=== PATIENT | female | born 1990 | race African-American/Black ===

== ENCOUNTER 2017-03-13 10:15 | Inpatient (IN) | payer OTHER ==
[2017-03-13] MEDS: DEXTROSE 5%-LACTATED RINGERS 1,000 ML IV SCH (14:00)
[2017-03-13 14:09] LABS: BASOPHIL 0.6 % (0-2.0); EOSINOPHIL 0.3 % (0-4.5); MCH 23.4 pg (25.7-33.7); MCHC 33.6 g/dl (32.0-36.0); MEAN CELL VOLUME 69.6 fl (80-96); MEAN PLT VOLUME 7.8 fl (7.5-11.1); PLATELET COUNT 221 K/MM3 (134-434); RDW 16.4 % (11.6-15.6)
[2017-03-13] MEDS ORDERED: AMPICILLIN - 2 GM in SODIUM CHLORIDE 100 ML IVPB ONE (14:20)
[2017-03-13] MEDS ORDERED: BETAMET ACET/BETAMET NA PH 30 MG/5 ML VIAL IM ONE (14:22)
[2017-03-13 14:23] LABS: INR 1.12 (0.82-1.09); PROTHROMBIN TIME (PATIENT) 12.4 SEC (9.98-11.88)
[2017-03-13 14:26] LABS: ACTIVATED PTT 27.4 SECONDS (26.9-34.4)
[2017-03-13 14:29] LABS: CALCIUM 8.6 mg/dL (8.5-10.1); CREATININE 0.7 mg/dL (0.55-1.02)
[2017-03-13 14:35] VITALS: BMI 32.4
--- NOTE | 2017-03-13 14:48 | HP ---
Past Medical History - Primary Care Physician PCP:: Anthony Vanegas - Admission Chief Complaint: 34 weeks, vaginal discharge, r/o prom History of Present Illness: 26 yo f edc by boris 04/24/17 34 weeks, c/o leakage of clear fluid from vagina since 830 am ,no bleeding, no pain.,no fever or chills, care at [facility] care, total of 4 visit. vagina clear fluid noted , nitrazine negative , 3 times History Source: Patient Limitations to Obtaining History: No Limitations - Past Medical History ...: 4 ...Para: 2 ...Term: 2 ...: 0 ...Spon : 1 ...Induced : 0 ...Multiple Gestation: 0 ...EDC by Boris: 04/24/17 Additional OB History: 2 2009. 2013, term ,no complication. one spont ab - Past Surgical History Hx Myomectomy: No Hx Transabdominal Cerclage: No - Smoking History Smoking history: Never smoked Have you smoked in the past 12 months: No - Alcohol/Substance Use Hx Alcohol Use: No - Social History Usual Living Arrangement: Yes: With Spouse History of Recent Travel: No Home Medications - Allergies Allergies/Adverse Reactions: Allergies Allergy/AdvReac Type Severity Reaction Status Date / Time No Known Allergies Allergy Verified 03/13/17 11:40 - Home Medications Home Medications: Ambulatory Orders Vit/Iron Fumarate/FA [ Tablet] 1 each PO DAILY 03/13/17 Ibuprofen [Motrin -] 600 mg PO QID #28 tablet 03/20/17 Review of Systems - Review of Systems Constitutional: reports: No Symptoms Eyes: reports: No Symptoms HENT: reports: No Symptoms Neck: reports: No Symptoms Cardiovascular: reports: No Symptoms Respiratory: reports: No Symptoms Gastrointestinal: reports: No Symptoms Genitourinary: reports: No Symptoms Breasts: reports: No Symptoms Reported Musculoskeletal: reports: No Symptoms Neurological: reports: No Symptoms Endocrine: reports: No Symptoms Hematology/Lymphatic: reports: No Symptoms Psychiatric: reports: No Symptoms Physical Exam - Maternity Vital Signs: Vital Signs Temperature 98.2 F 03/13/17 14:20 Pulse Rate 82 03/13/17 14:20 Respiratory Rate 18 03/13/17 14:20 Blood Pressure 117/50 03/13/17 14:20 O2 Sat by Pulse Oximetry (%) Constitutional: Yes: Well Nourished, No Distress, Calm Eyes: Yes: WNL, Conjunctiva Clear, EOM Intact HENT: Yes: WNL, Atraumatic, Normocephalic Neck: Yes: WNL, Supple, Trachea Midline Cardiovascular: Yes: WNL, Regular Rate and Rhythm Breast(s): Yes: WNL - Abdominal Exam/OB Fundal Height: 34 Number of Fetuses: Single Presentation: Vertex Regularity: Irritability Intensity: Unaware Monitor Mode: External Heart Rate Location: [facility] Category: I Accelerations: Uniform Decelerations: None - Vaginal Exam/OB Vaginal Bleediing: No Speculum Exam: Yes Dilatation (cm): closed Effacement (%): 0 Amniotic Membrane Status: Leaking Nitrazine Test: Negative Amniotic Fluid: Yes: Clear Presentation: Vertex/Position Station: -2 - Physical Exam Musculoskeletal: Yes: WNL Extremities: Yes: WNL Edema: LLE: Trace, RLE: Trace Deep Tendon Reflex Grade: Normal +2 Psychiatric: Yes: WNL - Labs Lab Results: CBC, BMP 03/13/17 13:50 03/13/17 13:50 Hemorrhage Risk Assessment - Risk Factors Medium Risk Factors: Yes: None High Risk Factors: Yes: None Risk Score: 1 Risk Level: Medium Risk Problem List - Problems (1) with 34 completed weeks gestation Code(s): Z3A.34 - 34 WEEKS GESTATION OF (2) Ruptured, membranes, premature Code(s): O42.90 - FRANKIE ROM, 7TH0 BETW RUPT & ONST LABR, UNSP WEEKS OF GEST Qualifiers: PROM gestational age: -third trimester Assessment/Plan 34 weeks, clear vaginal fluid seen in vaginal vault, nitrazine negative, ob sono BPP 8/8 , kitty normal, fhr cat 1, in view of large amt. of clear vaginal fluid fluid ,unable to r/o PROM, advised admission for observation , iv ampicillin prophylaxis, betametasone, revaluate with repeat sono in 24 hr check kitty, heart monitoring, management discussed with patient, agreed
[2017-03-13 17:40] LABS: URINE APPEARANCE CLEAR; URINE BILIRUBIN NEGATIVE (NEGATIVE); URINE BLOOD NEGATIVE (NEGATIVE); URINE COLOR YELLOW; URINE GLUCOSE (UA) NEGATIVE (NEGATIVE); URINE KETONE NEGATIVE (NEGATIVE); URINE LEUK ESTERASE NEGATIVE (NEGATIVE); URINE NITRITE POSITIVE (NEGATIVE); URINE UROBILINOGEN 4.0 E.U/dl E.U./dl (0.2-1.0)
[2017-03-13 17:55] LABS: URINE PROTEIN 1+ (NEGATIVE)
[2017-03-13] MEDS: AMPICILLIN - 1 GM in SODIUM CHLORIDE 100 ML IVPB SCH ×2 (18:00→21:55)
[2017-03-13 18:11] LABS: URINE MARIJUANA THC NEGATIVE ng/ml (CUTOFF=50)
[2017-03-13 18:12] LABS: URINE MUCUS RARE; URINE RBC 1 /hpf (0-3); URINE WBC 1 /hpf (3-5)
[2017-03-14] MEDS: AMPICILLIN - 1 GM in SODIUM CHLORIDE 100 ML IVPB SCH ×6 (02:15→23:00)
[2017-03-14 08:28] LABS: BASOPHIL 0.2 % (0-2.0); MCH 23.9 pg (25.7-33.7); MCHC 33.7 g/dl (32.0-36.0); MEAN PLT VOLUME 8.3 fl (7.5-11.1); NEUTROPHILS 82.1 % (42.8-82.8); PLATELET COUNT 212 K/MM3 (134-434); WHITE BLOOD COUNT 8.2 K/mm3 (4.0-10.0)
[2017-03-14 08:49] LABS: CALCIUM 8.8 mg/dL (8.5-10.1)
[2017-03-14 08:50] LABS: COCKROFT - GAULT 196.656; CREATININE 0.6 mg/dL (0.55-1.02)
[2017-03-14] MEDS: PRENATAL VITAMINS W/ FOLIC ACID TABLET (FP) PO SCH (09:50)
[2017-03-14] MEDS ORDERED: BETAMET ACET/BETAMET NA PH 30 MG/5 ML VIAL IM ONE (11:30)
[2017-03-14] MEDS: DEXTROSE 5%-LACTATED RINGERS 1,000 ML IV SCH ×2 (11:30→17:41)
--- NOTE | 2017-03-14 21:34 | PN ---
Progress Note (short form) - Note Progress Note: 34 weeks, prom. ,no pain, no vaginal bleeding, no chills, still leaking fluid less than before CBC, BMP 03/14/17 07:30 03/14/17 07:30 Last Vital Signs Temp Pulse Resp BP Pulse Ox 98.7 F 81 18 108/48 03/14/17 21:00 03/14/17 20:00 03/14/17 20:00 03/14/17 20:00 uterus non tender. fh cat 1 tracing, no contraction, sono decreased RIANNA plan received second dose of celestone. cont antibiotics revaluate in 24 hr for possible induction Problem List - Problems (1) with 34 completed weeks gestation Code(s): Z3A.34 - 34 WEEKS GESTATION OF (2) Ruptured, membranes, premature Code(s): O42.90 - FRANKIE ROM, 7TH0 BETW RUPT & ONST LABR, UNSP WEEKS OF GEST Qualifiers: PROM gestational age: -third trimester
[2017-03-15] MEDS: AMPICILLIN - 1 GM in SODIUM CHLORIDE 100 ML IVPB SCH ×6 (02:20→22:00)
[2017-03-15] MEDS: DEXTROSE 5%-LACTATED RINGERS 1,000 ML IV SCH ×3 (02:20→17:35)
[2017-03-15 05:35] LABS: MCH 23.1 pg (25.7-33.7); MCHC 32.7 g/dl (32.0-36.0); MEAN CELL VOLUME 70.6 fl (80-96); MEAN PLT VOLUME 7.9 fl (7.5-11.1); PLATELET COUNT 198 K/MM3 (134-434); RDW 16.6 % (11.6-15.6); WHITE BLOOD COUNT 11.1 K/mm3 (4.0-10.0)
[2017-03-15] MEDS: PRENATAL VITAMINS W/ FOLIC ACID TABLET (FP) PO SCH (09:39)
--- NOTE | 2017-03-15 10:02 | PN ---
Progress Note (short form) - Note Progress Note: no c/o no pain, no gush of fluid , no bleeding, no foul discharge CBC, BMP 03/15/17 05:25 03/14/17 07:30 abdomen soft, uterus non tender nst reactive, cat 1 tracing irregular on and off contraction induction vs expectant management discussed as long as no chorio plan evaluation by MFM in am, with recommendation. cont nst, and monitor temp Problem List - Problems (1) with 34 completed weeks gestation Code(s): Z3A.34 - 34 WEEKS GESTATION OF (2) Ruptured, membranes, premature Code(s): O42.90 - FRANKIE ROM, 7TH0 BETW RUPT & ONST LABR, UNSP WEEKS OF GEST Qualifiers: PROM gestational age: -third trimester
--- NOTE | 2017-03-15 10:08 | HP ---
Past Medical History - Primary Care Physician PCP:: Anthony Vanegas - Admission Chief Complaint: 41.1 weeks, labor History of Present Illness: 26 yo f [id number] 03/05/17, care at [facility]. c/o of contraction,no rom, no bleeding, cx 2 cm, 80 vx -3 mi, fhr cat 1, contraction q 2 min History Source: Patient Limitations to Obtaining History: No Limitations - Past Medical History ...: 4 ...Para: 2 ...Term: 2 ...: 0 ...Spon : 1 ...Induced : 0 ...Multiple Gestation: 0 ...EDC by Sono: 04/24/17 - Past Surgical History Past Surgical History: Yes: Appendectomy - Smoking History Smoking history: Never smoked Have you smoked in the past 12 months: No - Alcohol/Substance Use Hx Alcohol Use: No - Social History Usual Living Arrangement: Yes: With Spouse History of Recent Travel: No Home Medications - Allergies Allergies/Adverse Reactions: Allergies Allergy/AdvReac Type Severity Reaction Status Date / Time No Known Allergies Allergy Verified 03/13/17 11:40 - Home Medications Home Medications: Ambulatory Orders Vit/Iron Fumarate/FA [ Tablet] 1 each PO DAILY 03/13/17 Review of Systems - Review of Systems Constitutional: reports: No Symptoms Eyes: reports: No Symptoms HENT: reports: No Symptoms Neck: reports: No Symptoms Cardiovascular: reports: No Symptoms Respiratory: reports: No Symptoms Gastrointestinal: reports: Abdominal Pain Genitourinary: reports: No Symptoms Breasts: reports: No Symptoms Reported Musculoskeletal: reports: No Symptoms Integumentary: reports: No Symptoms Neurological: reports: No Symptoms Endocrine: reports: No Symptoms Hematology/Lymphatic: reports: No Symptoms Psychiatric: reports: No Symptoms Pain Intensity: 6 Physical Exam - Maternity Vital Signs: Vital Signs Temperature 98.2 F 03/15/17 08:00 Pulse Rate 82 03/15/17 09:00 Respiratory Rate 20 03/15/17 09:00 Blood Pressure 100/50 03/15/17 09:00 O2 Sat by Pulse Oximetry (%) Constitutional: Yes: Well Nourished, No Distress, Calm Eyes: Yes: WNL, Conjunctiva Clear, EOM Intact HENT: Yes: WNL, Atraumatic, Normocephalic Neck: Yes: WNL, Supple, Trachea Midline Cardiovascular: Yes: WNL, Regular Rate and Rhythm Breast(s): Yes: WNL - Abdominal Exam/OB Fundal Height: 40 Number of Fetuses: Single Presentation: Vertex Contractions: Yes Regularity: Regular Intensity: Mod/Strong Monitor Mode: External Heart Rate [facility] Category: I Accelerations: Uniform Decelerations: None - Vaginal Exam/OB Vaginal Bleediing: No Speculum Exam: No Dilatation (cm): 2 cm Effacement (%): 80 Amniotic Membrane Status: Intact Nitrazine Test: Negative Presentation: Vertex/Position Station: -3 - Physical Exam Musculoskeletal: Yes: Back Pain Extremities: Yes: WNL Edema: Yes Edema: LLE: 1+, RLE: 1+ Deep Tendon Reflex Grade: Normal +2 Psychiatric: Yes: WNL - Labs Lab Results: CBC, BMP 03/15/17 05:25 03/14/17 07:30 Hemorrhage Risk Assessment - Risk Factors Risk Score: 0 Risk Level: Low Risk Problem List - Problems (1) with 34 completed weeks gestation Code(s): Z3A.34 - 34 WEEKS GESTATION OF (2) Ruptured, membranes, premature Code(s): O42.90 - FRANKIE ROM, 7TH0 BETW RUPT & ONST LABR, UNSP WEEKS OF GEST Qualifiers: PROM gestational age: -third trimester
[2017-03-16] MEDS: AMPICILLIN - 1 GM in SODIUM CHLORIDE 100 ML IVPB SCH ×6 (02:00→22:10)
[2017-03-16] MEDS: DEXTROSE 5%-LACTATED RINGERS 1,000 ML IV SCH ×2 (02:30→16:00)
[2017-03-16 08:09] LABS: BASOPHIL 0.2 % (0-2.0); EOSINOPHIL 0.1 % (0-4.5); MCH 23.7 pg (25.7-33.7); MCHC 33.6 g/dl (32.0-36.0); MEAN CELL VOLUME 70.6 fl (80-96); MEAN PLT VOLUME 8.2 fl (7.5-11.1); NEUTROPHILS 76.2 % (42.8-82.8); PLATELET COUNT 175 K/MM3 (134-434); RDW 16.7 % (11.6-15.6); WHITE BLOOD COUNT 10.8 K/mm3 (4.0-10.0)
--- NOTE | 2017-03-16 08:19 | PN ---
Progress Note (short form) - Note Progress Note: mild occasional cramps, still leaking clear fluid Last Vital Signs Temp Pulse Resp BP Pulse Ox 98.3 F 81 20 112/51 03/16/17 06:00 03/16/17 06:00 03/16/17 06:00 03/16/17 06:00 uterus non tender, no contraction felt plan MFM evaluation and recommendation possible induction Problem List - Problems (1) with 34 completed weeks gestation Code(s): Z3A.34 - 34 WEEKS GESTATION OF (2) Ruptured, membranes, premature Code(s): O42.90 - FRANKIE ROM, 7TH0 BETW RUPT & ONST LABR, UNSP WEEKS OF GEST Qualifiers: PROM gestational age: -third trimester
[2017-03-16] MEDS: PRENATAL VITAMINS W/ FOLIC ACID TABLET (FP) PO SCH (10:16)
[2017-03-17] MEDS: AMPICILLIN - 1 GM in SODIUM CHLORIDE 100 ML IVPB SCH ×6 (01:59→22:15)
[2017-03-17] MEDS: DEXTROSE 5%-LACTATED RINGERS 1,000 ML IV SCH ×2 (08:45→17:35)
[2017-03-17] MEDS ORDERED: BUTORPHANOL TARTRATE 1 MG/ML VIAL IVPUSH PRN (08:49)
--- NOTE | 2017-03-17 08:49 | PN ---
Progress Note (short form) - Note Progress Note: spoke to DR Jenn NELSON ,case discussed , advised induction, induction discussed with patient, rba discussed , cx closed , non effaced -3 mr, fhr cat 1,no contraction., cervidil, pitocin discussed , rba expalined , agreed to have cervidil ,cervidil inserted at 840 am Problem List - Problems (1) with 34 completed weeks gestation Code(s): Z3A.34 - 34 WEEKS GESTATION OF (2) Ruptured, membranes, premature Code(s): O42.90 - FRANKIE ROM, 7TH0 BETW RUPT & ONST LABR, UNSP WEEKS OF GEST Qualifiers: PROM gestational age: -third trimester
[2017-03-17] MEDS ORDERED: DINOPROSTONE 10 MG VAGINAL SUPPOSITORY VG ONE (08:50)
[2017-03-17] MEDS: PRENATAL VITAMINS W/ FOLIC ACID TABLET (FP) PO SCH (09:17)
--- NOTE | 2017-03-17 20:39 | PN ---
Progress Note (short form) - Note Progress Note: cx closed , 50 vx -3 mr, fhr cat 1, cervidil removed . pitocin discussed , agreed Problem List - Problems (1) with 34 completed weeks gestation Code(s): Z3A.34 - 34 WEEKS GESTATION OF (2) Ruptured, membranes, premature Code(s): O42.90 - FRANKIE ROM, 7TH0 BETW RUPT & ONST LABR, UNSP WEEKS OF GEST Qualifiers: PROM gestational age: -third trimester
[2017-03-17] MEDS ORDERED: OXYTOCIN 15 UNITS/ LR 250 ML 250 ML IVPB SCH (20:45)
--- NOTE | 2017-03-18 01:27 | PN ---
Progress Note (short form) - Note Progress Note: cx 4 cm 75 vx -2 mi, fhr cat 1, occasional mild variable with good recovery Problem List - Problems (1) with 34 completed weeks gestation Code(s): Z3A.34 - 34 WEEKS GESTATION OF (2) Ruptured, membranes, premature Code(s): O42.90 - FRANKIE ROM, 7TH0 BETW RUPT & ONST LABR, UNSP WEEKS OF GEST Qualifiers: PROM gestational age: -third trimester
[2017-03-18] MEDS ORDERED: METHYLERGONOVINE MALEATE 0.2 MG/1 ML AMP IM ONE (02:15)
[2017-03-18] MEDS ORDERED: BISACODYL 10 MG SUPP.RECT RC PRN (02:18)
[2017-03-18] MEDS ORDERED: METHYLERGONOVINE MALEATE 0.2 MG/1 ML AMP IM PRN (02:18)
[2017-03-18] MEDS ORDERED: oxyCODONE HCL 5 MG TABLET PO PRN (02:18)
[2017-03-18] MEDS ORDERED: BENZOCAINE 20% 57 GM BOTTLE TP PRN (02:18)
[2017-03-18] MEDS ORDERED: WITCH HAZEL 50% (TUCKS) 40 PAD/JAR PAD TP PRN (02:18)
[2017-03-18] MEDS ORDERED: BENZOCAINE 28 GM HEMORRHOIDAL OINTMENT TP PRN (02:18)
[2017-03-18] MEDS ORDERED: MISOPROSTOL 100 MCG TABLET NR ONE (02:25)
[2017-03-18] MEDS ORDERED: CARBOPROST TROMETHAMINE 250 MCG/ML AMPUL IM ONE ×2 (02:30→02:55)
[2017-03-18] MEDS ORDERED: D5W-LR W/ 20 UNITS OXYTOCIN 1,000 ML IV SCH (02:30)
[2017-03-18] MEDS ORDERED: BUTORPHANOL TARTRATE 1 MG/ML VIAL IVPUSH ONE (02:35)
[2017-03-18 03:15] LABS: ARTERIAL BLOOD GAS pH 7.23 (7.35-7.45)
[2017-03-18] MEDS ORDERED: OXYTOCIN IV ONE (03:15)
[2017-03-18] MEDS ORDERED: LACTATED RINGERS IV ONE (03:15)
[2017-03-18] MEDS ORDERED: DEXTROSE 5% IV ONE (03:15)
[2017-03-18 03:16] LABS: ARTERIAL BLD GAS O2 SATURATION 38.7 % (90-98.9); ARTERIAL BLOOD GAS BASE EXCESS -3.9 meq/l (-2-2); ARTERIAL BLOOD GAS HCO3 24.6 meq/L (22-26)
[2017-03-18 03:18] LABS: ARTERIAL BLOOD GAS PO2 23.1 mmHg (80-100)
[2017-03-18] MEDS: AMPICILLIN - 1 GM in SODIUM CHLORIDE 100 ML IVPB SCH (03:18)
[2017-03-18 03:21] LABS: VENOUS BLOOD GAS HCO3 23.1 meq/L (19-25); VENOUS PH 7.39 (7.32-7.42)
[2017-03-18] MEDS: DEXTROSE 5%-LACTATED RINGERS 1,000 ML IV SCH (03:47)
[2017-03-18] MEDS: IBUPROFEN 600 MG TABLET (FP) PO PRN ×2 (07:01→21:25)
[2017-03-18] MEDS: ACETAMINOPHEN 325 MG TABLET (FP) PO PRN ×2 (07:02→21:24)
[2017-03-18] MEDS: PRENATAL VITAMINS W/ FOLIC ACID TABLET (FP) PO SCH (09:38)
[2017-03-18] MEDS: FERROUS SO4 325 MG TABLET (FP) PO SCH ×2 (09:38→21:24)
--- NOTE | 2017-03-18 09:47 | PN ---
Progress Note (short form) - Note Progress Note: after spont. vaginal delivery, no episiotmy, had uterine atony, guidry inserted , iv pitocin, methergine 2 doses of hemabates given,uterine massaging done, cytotec given intravaginally, utrus firm, bleeding stopped, VS stable Problem List - Problems (1) with 34 completed weeks gestation Code(s): Z3A.34 - 34 WEEKS GESTATION OF (2) Ruptured, membranes, premature Code(s): O42.90 - FRANKIE ROM, 7TH0 BETW RUPT & ONST LABR, UNSP WEEKS OF GEST Qualifiers: PROM gestational age: -third trimester
[2017-03-18] MEDS ORDERED: PRENATAL VITAMINS W/ FOLIC ACID TABLET (FP) PO SCH (10:00)
[2017-03-18 10:20] LABS: BASOPHIL 0.5 % (0-2.0); MCH 23.1 pg (25.7-33.7); MCHC 32.9 g/dl (32.0-36.0); MEAN CELL VOLUME 70.1 fl (80-96); MEAN PLT VOLUME 8.4 fl (7.5-11.1); NEUTROPHILS 83.7 % (42.8-82.8); PLATELET COUNT 228 K/MM3 (134-434); RDW 16.5 % (11.6-15.6); WHITE BLOOD COUNT 17.7 K/mm3 (4.0-10.0)
--- NOTE | 2017-03-19 07:24 | PN ---
Post Progress Note Post Day: 1 Type of Delivery: Vital Signs: Vital Signs Temperature 99.6 F 03/18/17 22:00 Pulse Rate 75 03/18/17 22:00 Respiratory Rate 20 03/18/17 22:00 Blood Pressure 132/86 03/18/17 22:00 O2 Sat by Pulse Oximetry (%) Breast Exam: Yes: Soft Uterus: Yes: Fundus Firm Abdomen/GI: Yes: Abdomen soft Lochia: Yes: Rubra Lochia, amount: Small Extremities: Yes: Calves non-tender Perineum: Yes: Intact Activity: Ambulating - Labs Labs: CBC WBC 17.7 K/mm3 (4.0-10.0) H D 03/18/17 10:00 RBC 4.11 M/mm3 (3.60-5.2) 03/18/17 10:00 Hgb 9.5 GM/dL (10.7-15.3) L 03/18/17 10:00 Hct 28.8 % (32.4-45.2) L 03/18/17 10:00 MCV 70.1 fl (80-96) L 03/18/17 10:00 MCHC 32.9 g/dl (32.0-36.0) 03/18/17 10:00 RDW 16.5 % (11.6-15.6) H 03/18/17 10:00 Plt Count 228 K/MM3 (134-434) D 03/18/17 10:00 MPV 8.4 fl (7.5-11.1) 03/18/17 10:00 Neutrophils % 83.7 % (42.8-82.8) H 03/18/17 10:00 Lymphocytes % 8.0 % (8-40) D 03/18/17 10:00 Monocytes % 7.8 % (3.8-10.2) 03/18/17 10:00 Eosinophils % 0.0 % (0-4.5) D 03/18/17 10:00 Basophils % 0.5 % (0-2.0) 03/18/17 10:00 Assessment/Plan as above ambulating check labs vss reg diet
[2017-03-19 09:14] LABS: BASOPHIL 0.3 % (0-2.0); EOSINOPHIL 0.5 % (0-4.5); MCH 23.2 pg (25.7-33.7); MCHC 32.8 g/dl (32.0-36.0); MEAN CELL VOLUME 70.7 fl (80-96); MEAN PLT VOLUME 8.5 fl (7.5-11.1); NEUTROPHILS 70.8 % (42.8-82.8); PLATELET COUNT 213 K/MM3 (134-434); RDW 16.5 % (11.6-15.6); WHITE BLOOD COUNT 13.3 K/mm3 (4.0-10.0)
[2017-03-19] MEDS ORDERED: DIPHTH,PERTUSS(ACELL),TET 0.5 ML DISP.SYRIN IM ONE (10:00)
[2017-03-19] MEDS: PRENATAL VITAMINS W/ FOLIC ACID TABLET (FP) PO SCH (10:54)
[2017-03-19] MEDS: FERROUS SO4 325 MG TABLET (FP) PO SCH ×2 (10:54→21:26)
[2017-03-19 20:54] VITALS: TEMP 98.8
[2017-03-19] MEDS ORDERED: SENNOSIDES/DOCUSATE COMBO (SENNA PLUS) TABLET (UD) PO PRN (22:00)
--- NOTE | 2017-03-20 09:09 | DS ---
Physical Exam-SUPERVISOR COIL WINDING Vital Signs: Vital Signs Temperature 98.8 F 03/19/17 20:52 Pulse Rate 80 03/19/17 20:52 Respiratory Rate 20 03/19/17 20:52 Blood Pressure 137/81 03/19/17 20:52 O2 Sat by Pulse Oximetry (%) Constitutional: Yes: Well Nourished, No Distress, Calm Eyes: Yes: WNL, Conjunctiva Clear, EOM Intact HENT: Yes: WNL, Atraumatic, Normocephalic Neck: Yes: WNL, Supple, Trachea Midline Cardiovascular: Yes: WNL, Regular Rate and Rhythm Respiratory: Yes: WNL, Regular, CTA Bilaterally Gastrointestinal: Yes: WNL ...Rectal Exam: Yes: WNL Renal/: Yes: WNL ....Post : Yes: Uterus firm, Uterus non-tender, Slight lochia rubra Breast(s): Yes: WNL Musculoskeletal: Yes: WNL Extremities: Yes: WNL Edema: No Integumentary: Yes: WNL Neurological: Yes: WNL, Alert, Oriented ...Motor Strength: WNL Psychiatric: Yes: WNL, Alert, Oriented Labs: CBC, BMP 03/19/17 08:00 03/14/17 07:30 Delivery - Delivery Vaginal Delivery: Spontaneous (post hemmorrhage) Type of Anesthesia: None Episiotomy/Laceration: None EBL (cc): 700 Delivery, Single - Stages of Labor Date 1st Stage Initiatied: 03/18/17 Time 1st Stage Initiated: 00:00 Date 2nd Stage Initiated: 03/18/17 Time 2nd Stage Initiated: 01:45 Date of Delivery: 03/18/17 Time of Delivery: 02:05 Time Placenta Delivered: 02:10 Placenta: Yes: Spontaneous - Condition of Infant Sexual Assault Response Coordinator/Automatic Lump Making Machine Tender Present: No Infant Gender: Male Weight: 5 lb 7 oz Position: Left, OA Total Hours ROM (Hrs/Mins): 113hrs 40mins - 1 Minute Total Score: 9 5 Minutes Total Score: 9 - [place] Feeding Plan Initial Plan: Exclusive throughout hospitalization Discharge Summary Reason For Visit: POSSIBLE RUPTURE OF MEMBRANE Current Active Problems with 34 completed weeks gestation (Acute) Ruptured, membranes, premature (Acute) Procedures: Principal: Condition: Good - Instructions Diet, Activity, Other Instructions: regular diet, no intercourse, follow up [facility] care 4 weeks Referrals: Anthony Vanegas MD [Staff Physician] - Disposition: HOME - Home Medications Comprehensive Discharge Medication List: Ambulatory Orders Vit/Iron Fumarate/FA [ Tablet] 1 each PO DAILY 03/13/17 Ibuprofen [Motrin -] 600 mg PO QID #28 tablet 03/20/17
[2017-03-20] MEDS: FERROUS SO4 325 MG TABLET (FP) PO SCH (10:58)
[2017-03-20] MEDS: ACETAMINOPHEN 325 MG TABLET (FP) PO PRN (10:58)
[2017-03-20] MEDS: IBUPROFEN 600 MG TABLET (FP) PO PRN (10:58)
[2017-03-20] MEDS: PRENATAL VITAMINS W/ FOLIC ACID TABLET (FP) PO SCH (10:58)
[2017-03-20 11:39] VITALS: BP 120/65; PULSE 76
--- NOTE | 2017-03-25 13:23 | PATH ---
Surgical Pathology Report Patient Name: FARZAD NEGRON Med. Rec. 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 Electronically Signed Lance Pacheco M.D. Gross Description The specimen is received fresh, labeled "placenta" and is a 402 gram, 15.0 x 14.5 x 2.7 cm placenta with attached membranes and umbilical cord. The attached membranes are valdovinos, translucent with focal opacities and insert marginally. The umbilical cord measures 17 cm in length and averages 1 cm in diameter. The cord inserts centrally. No true knots or strictures are identified. Cut surface of the umbilical cord reveals 3 vessels. The surface is estrella-blue with fibrin deposition and appropriate caliber vessels. The maternal surface is red-brown and intact. Sectioning reveals red-brown, spongy parenchyma. No focal lesions are identified. Revenue Tax Specialist sections are submitted in three cassettes as follows: 1- membrane rolls and umbilical cord; 2-3- full thickness sections of placenta. /03/24/2017 [facility]03/24/2017
== END 2017-03-20 13:30 | disposition home or self-care (01) | DRG 560 ==
LOC: JDEL 10:15 → JLDR 13:15 → J3W 03-18 05:26
PROVIDERS: ADMIT Obstetrics & Gynecology; ATTEND Obstetrics & Gynecology
PROC: 3E0P7GC Introduction of Other Therapeutic Substance into Female Reproductive, Via Natural or Artificial Opening (ICD-10-PCS; 2017-03-17)
PROC: 10E0XZZ Delivery of Products of Conception, External Approach (ICD-10-PCS; principal; 2017-03-18)
PROC: 3E0334Z Introduction of Serum, Toxoid and Vaccine into Peripheral Vein, Percutaneous Approach (ICD-10-PCS; 2017-03-18)
DX: O60.14X0 Preterm labor third trimester with preterm delivery third trimester, not applicable or unspecified (principal); Z3A.34 34 weeks gestation of pregnancy; O72.1 Other immediate postpartum hemorrhage; O26.893 Other specified pregnancy related conditions, third trimester; Z67.91 Unspecified blood type, Rh negative; Z37.0 Single live birth
CPT/HCPCS: 36415; 36600; 59409; 76816-TC; 80048; 80307; 81003; 81015; 82803; 85025; 85027; 85461; 85610; 85730; 86593; 86850; 86870; 86900; 86901; 86902; 86999; 87081; 87086; 88307-TC; 90715; 96372

== ENCOUNTER 2018-07-23 04:05 | Inpatient (IN) | payer OTHER ==
[~2018-07-23 04:05] MED LIST: DEXTROSE 5%-LACTATED RINGERS 1,000 ML IV SCH
[2018-07-23] MEDS ORDERED: AMPICILLIN - 2 GM in SODIUM CHLORIDE 100 ML IVPB ONE (05:45)
[2018-07-23 06:15] LABS: BASO % 0.3 % (0-2.0); EOS % 0.2 % (0-4.5); HEMATOCRIT 26.2 % (32.4-45.2); HEMOGLOBIN 8.5 GM/dL (10.7-15.3); LYMPH % 27.3 % (8-40); MCH 20.3 pg (25.7-33.7); MCHC 32.5 g/dl (32.0-36.0); MEAN CELL VOLUME 62.3 fl (80-96); MEAN PLT VOLUME 8.7 fl (7.5-11.1); MONO % 7.9 % (3.8-10.2); NEUT % 64.3 % (42.8-82.8); PLATELET COUNT 212 K/MM3 (134-434); RBC 4.21 M/mm3 (3.60-5.2); RDW 20.4 % (11.6-15.6); WHITE BLOOD COUNT 9.1 K/mm3 (4.0-10.0)
[2018-07-23] MEDS ORDERED: AMPICILLIN SODIUM 2 GM VIAL ONE (06:15)
[2018-07-23 06:20] LABS: ADD RBC MORPHOLOGY YES
[2018-07-23 06:28] LABS: INR 1.11 (0.83-1.09); PROTHROMBIN TIME (PATIENT) 12.5 SEC (9.7-13.0)
[2018-07-23 06:31] LABS: ACTIVATED PTT 24.4 SECONDS (25.2-36.5)
[2018-07-23 06:39] LABS: ANION GAP 12 MMOL/L (8-16); BLOOD UREA NITROGEN 9 mg/dL (7-18); CALCIUM 8.8 mg/dL (8.5-10.1); CHLORIDE 107 mmol/L (98-107); CO2 20 mmol/L (21-32); CREATININE 0.5 mg/dL (0.55-1.3); GLUCOSE,RANDOM 73 mg/dL (74-106); POTASSIUM 3.7 mmol/L (3.5-5.1); SODIUM 140 mmol/L (136-145)
[2018-07-23] MEDS ORDERED: TUBERCULIN PPD 5 TU/0.1ML SYRINGE (IN PATIENT USE ONLY) ID ONE (07:00)
[2018-07-23] MEDS ORDERED: DINOPROSTONE 10 MG VAGINAL SUPPOSITORY VG ONE (07:59)
[2018-07-23] MEDS ORDERED: DEXTROSE 5%-LACTATED RINGERS 1,000 ML IV SCH (08:00)
--- NOTE | 2018-07-23 08:04 | HP ---
Past Medical History - Admission Chief Complaint: Rupture of membrane History of Present Illness: 27 yo @ 37 weeks gestation, EDC 08/13/18, presents c/o rupture of membrane. Upon admission she was finger tip but there's was evidence of gross pooling. History Source: Patient Limitations to Obtaining History: No Limitations - Past Medical History ...: 5 ...Para: 3 ...Term: 2 ...: 1 ...Spon : 1 ...Induced : 0 ...Multiple Gestation: 0 ... Weeks Gestation by Dates: 37.0 ...EDC by Dates: 08/13/18 - Past Surgical History Past Surgical History: Yes: Appendectomy Hx Myomectomy: No Hx Transabdominal Cerclage: No - Smoking History Smoking history: Never smoked Have you smoked in the past 12 months: No - Alcohol/Substance Use Hx Alcohol Use: No History of Substance Use: reports: None - Social History Usual Living Arrangement: Yes: With Significant Other History of Recent Travel: No Home Medications - Allergies Allergies/Adverse Reactions: Allergies Allergy/AdvReac Type Severity Reaction Status Date / Time No Known Allergies Allergy Verified 07/23/18 06:53 - Home Medications Home Medications: Ambulatory Orders Vit/Iron Fum/Folic AC [ Tablet] 1 each PO DAILY 03/13/17 Family Disease History - Family Disease History Family History: Unremarkable Review of Systems - Review of Systems Constitutional: reports: No Symptoms Eyes: reports: No Symptoms HENT: reports: No Symptoms Neck: reports: No Symptoms Cardiovascular: reports: No Symptoms Respiratory: reports: No Symptoms Gastrointestinal: reports: No Symptoms Genitourinary: reports: Other (Leakage of fluid) Breasts: reports: No Symptoms Reported Musculoskeletal: reports: No Symptoms Integumentary: reports: No Symptoms Neurological: reports: No Symptoms Endocrine: reports: No Symptoms Hematology/Lymphatic: reports: No Symptoms Psychiatric: reports: No Symptoms Pain Intensity: 3 Physical Exam - Maternity Vital Signs: Vital Signs Temperature 98.7 F 07/23/18 07:00 Pulse Rate 82 07/23/18 07:00 Respiratory Rate 20 07/23/18 07:00 Blood Pressure 112/65 07/23/18 07:00 O2 Sat by Pulse Oximetry (%) Constitutional: Yes: Well Nourished Eyes: Yes: Conjunctiva Clear Neck: Yes: Supple Cardiovascular: Yes: Regular Rate and Rhythm Lungs: Clear to auscultation Breast(s): Yes: WNL - Abdominal Exam/OB Number of Fetuses: Single Presentation: Vertex - Vaginal Exam/OB Amniotic Membrane Status: Ruptured Amniotic Fluid: Yes: Clear Presentation: Vertex/Position Station: -3 - Physical Exam Musculoskeletal: Yes: WNL Extremities: Yes: WNL Integumentary: Yes: WNL ...Motor Strength: WNL Psychiatric: Yes: Alert, Oriented - Labs Lab Results: CBC, BMP 07/23/18 05:25 07/23/18 05:25 Problem List - Problems (1) SROM (spontaneous rupture of membranes) Code(s): KQQ3456 - Assessment/Plan 37 weeks gestation SROM Admit to L&D Cervidil induction Re-evaluate in 12hrs or before if indicated Analgesia as needed
[2018-07-23 08:46] LABS: URINE APPEARANCE CLEAR; URINE BILIRUBIN NEGATIVE (<2.0 mg/dL); URINE COLOR STRAW; URINE GLUCOSE (UA) NEGATIVE (NEGATIVE); URINE KETONE NEGATIVE (NEGATIVE); URINE LEUK ESTERASE NEGATIVE (NEGATIVE); URINE NITRITE NEGATIVE (NEGATIVE); URINE PROTEIN NEGATIVE (NEGATIVE); URINE UROBILINOGEN NEGATIVE mg/dL (0.2-1.0)
[2018-07-23 09:22] LABS: COCAINE, UR NEGATIVE ng/ml (CUTOFF=300); METHADONE, UR NEGATIVE ng/ml (CUTOFF=300); OPIATES, URI NEGATIVE ng/ml (CUTOFF=300); PHENCYCLIDINE,URINE NEGATIVE ng/ml (CUTOFF=25); URINE AMPHETAMINES NEGATIVE ng/ml (CUTOFF=500); URINE BARBITURATES NEGATIVE ng/ml (CUTOFF=200); URINE BENZODIAZEPINES NEGATIVE ng/ml (CUTOFF=200)
[2018-07-23] MEDS ORDERED: AMPICILLIN SODIUM 1 GM VIAL ONE (10:18)
[2018-07-23] MEDS: AMPICILLIN - 1 GM in SODIUM CHLORIDE 100 ML IVPB SCH ×3 (10:30→22:26)
--- NOTE | 2018-07-23 10:50 | PN ---
Progress Note, Labor Vaginal Exam #1 Labor Exam Date: 07/23/18 Labor Exam Time: 10:45 Heart Rate (range): 140, moderate, variable decels with quick recovery Dilatation: 4 Effacement (%): 50 Amniotic Membrane Status: Ruptured Presentation: Vertex/Position Station: -3 (Cat 2 tracing with intermittent variable decelerations. Will try position change. Discussed labor pain management options, requesting IV meds. Advised with more active labor- epidural only. Cont to monitor. Anticipate )
[2018-07-23] MEDS ORDERED: OXYTOCIN 20 UNITS in 0.9% NS 20 UNIT/1,000 ML INFUS.BAG IV ONE (11:04)
--- NOTE | 2018-07-23 11:58 | PN ---
Delivery - Delivery Vaginal Delivery: No Problems Type of Anesthesia: None Episiotomy/Laceration: None EBL (cc): 250 Delivery, Single - Stages of Labor Placenta: Yes: Spontaneous - Condition of Bottoming Room Inspector/Electric Meter Inspector Present: Yes Gender: Female Position: Right, OA - Feeding Plan Initial Plan: Elected not to breastfeed exclusively throughout hospitalization Remarks - Remarks Remarks: of VFI over intact perineum. MARTÍN. No anesthesia. 37wk gestation. No nuchal or meconium. Spontaneous delivery of anterior shoulder. Weight pending to allow skin to skin. Apgars 8/9. Spontaneous delivery of intact placenta with 3VC. Fundus firm. Perineum inspected, no lacerations. EBL 250ml. Mother and baby doing well.
[2018-07-23] MEDS ORDERED: BENZOCAINE 20% 57 GM BOTTLE TP PRN (11:59)
[2018-07-23] MEDS ORDERED: BISACODYL 10 MG SUPP.RECT RC PRN (11:59)
[2018-07-23] MEDS ORDERED: WITCH HAZEL 50% (TUCKS) 40 PAD/JAR PAD TP PRN (11:59)
[2018-07-23] MEDS ORDERED: BENZOCAINE 28 GM HEMORRHOIDAL OINTMENT TP PRN (11:59)
[2018-07-23] MEDS ORDERED: OXYTOCIN 20 UNITS in 0.9% NS 20 UNIT/1,000 ML INFUS.BAG IV SCH (12:00)
[2018-07-23] MEDS ORDERED: IBUPROFEN 600 MG TABLET (FP) PO ONE ×2 (12:01→16:43)
[2018-07-23] MEDS ORDERED: ACETAMINOPHEN 325 MG TABLET (FP) ONE ×2 (12:02→16:43)
[2018-07-23] MEDS: IBUPROFEN 600 MG TABLET (FP) PO PRN ×3 (12:05→22:24)
[2018-07-23] MEDS: ACETAMINOPHEN 325 MG TABLET (FP) PO PRN ×3 (12:05→22:24)
[2018-07-23 12:16] LABS: ANISOCYTOSIS 1+; MACROCYTOSIS 0; PLATELET ESTIMATE NORMAL
[2018-07-24] MEDS: AMPICILLIN - 1 GM in SODIUM CHLORIDE 100 ML IVPB SCH ×2 (03:39→19:20)
[2018-07-24 06:06] LABS: HBsAG SCREEN Negative (Negative)
[2018-07-24 07:49] LABS: BASO % 0.4 % (0-2.0); EOS % 0.1 % (0-4.5); HEMATOCRIT 26.8 % (32.4-45.2); HEMOGLOBIN 8.8 GM/dL (10.7-15.3); LYMPH % 23.1 % (8-40); MCH 20.7 pg (25.7-33.7); MCHC 32.7 g/dl (32.0-36.0); MEAN CELL VOLUME 63.2 fl (80-96); MEAN PLT VOLUME 9.2 fl (7.5-11.1); NEUT % 69.4 % (42.8-82.8); PLATELET COUNT 271 K/MM3 (134-434); RBC 4.24 M/mm3 (3.60-5.2); RDW 20.1 % (11.6-15.6); WHITE BLOOD COUNT 11.4 K/mm3 (4.0-10.0)
--- NOTE | 2018-07-24 12:00 | PN ---
Post Progress Note Type of Delivery: Vital Signs: Vital Signs Temperature 98.8 F 07/24/18 02:00 Pulse Rate 78 07/23/18 21:59 Respiratory Rate 20 07/23/18 21:59 Blood Pressure 119/58 L 07/23/18 21:59 O2 Sat by Pulse Oximetry (%) 99 07/23/18 17:15 Uterus: Yes: Fundus Firm, Fundus below umbilicus Abdomen/GI: Yes: Abdomen soft Lochia: Yes: Rubra Extremities: Yes: Calves non-tender Activity: Ambulating - Labs Labs: CBC WBC 11.4 K/mm3 (4.0-10.0) H 07/24/18 06:30 RBC 4.24 M/mm3 (3.60-5.2) 07/24/18 06:30 Hgb 8.8 GM/dL (10.7-15.3) L 07/24/18 06:30 Hct 26.8 % (32.4-45.2) L 07/24/18 06:30 MCV 63.2 fl (80-96) L 07/24/18 06:30 MCH 20.7 pg (25.7-33.7) L 07/24/18 06:30 MCHC 32.7 g/dl (32.0-36.0) 07/24/18 06:30 RDW 20.1 % (11.6-15.6) H 07/24/18 06:30 Plt Count 271 K/MM3 (134-434) D 07/24/18 06:30 MPV 9.2 fl (7.5-11.1) 07/24/18 06:30 Absolute Neuts (auto) 7.9 K/mm3 (1.5-8.0) 07/24/18 06:30 Neutrophils % 69.4 % (42.8-82.8) 07/24/18 06:30 Lymphocytes % 23.1 % (8-40) 07/24/18 06:30 Monocytes % 7.0 % (3.8-10.2) 07/24/18 06:30 Eosinophils % 0.1 % (0-4.5) 07/24/18 06:30 Basophils % 0.4 % (0-2.0) 07/24/18 06:30 Nucleated RBC % 0 % (0-0) 07/24/18 06:30 Hypochromia 1+ 07/23/18 05:25 Platelet Estimate Normal 07/23/18 05:25 Polychromasia 1+ 07/23/18 05:25 Poikilocytosis 0 07/23/18 05:25 Anisocytosis 1+ 07/23/18 05:25 Microcytosis 1+ 07/23/18 05:25 Macrocytosis 0 07/23/18 05:25 Assessment/Plan 27yo s/p , PPD#1 Doing well Routine PP care, po pain control Anticipate d/c to home PPD#2 with follow up in 6 weeks with her primary OBGYN in [place]
[2018-07-24] MEDS ORDERED: SENNOSIDES/DOCUSATE COMBO (SENNA PLUS) TABLET (UD) PO PRN (22:00)
[2018-07-25 10:11] VITALS: BP 135/77; PULSE 76; TEMP 98.6
--- NOTE | 2018-07-25 10:44 | DS ---
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 Vital Signs: Vital Signs Temperature 98.6 F 07/25/18 10:00 Pulse Rate 76 07/25/18 10:00 Respiratory Rate 18 07/25/18 10:00 Blood Pressure 135/77 07/25/18 10:00 O2 Sat by Pulse Oximetry (%) 99 07/23/18 17:15 Constitutional: Yes: Well Nourished, No Distress, Calm Eyes: Yes: WNL, Conjunctiva Clear, EOM Intact HENT: Yes: WNL, Atraumatic, Normocephalic Neck: Yes: WNL, Supple, Trachea Midline Cardiovascular: Yes: WNL, Regular Rate and Rhythm Respiratory: Yes: WNL, Regular, CTA Bilaterally Gastrointestinal: Yes: WNL ...Rectal Exam: Yes: WNL Renal/: Yes: WNL Breast(s): Yes: WNL Musculoskeletal: Yes: WNL Extremities: Yes: WNL Integumentary: Yes: WNL Neurological: Yes: WNL, Alert, Oriented ...Motor Strength: WNL Psychiatric: Yes: WNL, Alert, Oriented Labs: CBC, BMP 07/24/18 06:30 07/23/18 05:25 Delivery - Delivery Vaginal Delivery: No Problems Type of Anesthesia: None Episiotomy/Laceration: None EBL (cc): 250 Delivery, Single - Stages of Labor Date 1st Stage Initiatied: 07/23/18 Time 1st Stage Initiated: 05:00 Date 2nd Stage Initiated: 07/23/18 Time 2nd Stage Initiated: 11:15 Date of Delivery: 07/23/18 Time of Delivery: 11:38 Time Placenta Delivered: 11:40 Placenta: Yes: Spontaneous - Condition of Infant Resolution Expert/C Programmer Present: Yes Name: Ivan Sinha Infant Gender: Female Weight: 2.863 kg Position: Right, OA Total Hours ROM (Hrs/Mins): 8hrs/40mins - 1 Minute Total Score: 8 5 Minutes Total Score: 9 - [place] Feeding Plan Initial Plan: Elected not to breastfeed exclusively throughout hospitalization Remarks - Remarks Remarks: 27yo s/p , PPD#2 Routine PP course All milestones met Labs reviewed, stable D/C to home today. Tayla Rosales MD Discharge Summary Reason For Visit: ADMIT Current Active Problems SROM (spontaneous rupture of membranes) (Acute) Condition: Stable - Instructions Diet, Activity, Other Instructions: return to clinic in 4-6 weeks. call [facility] for appointment. [phone]. Disposition: HOME - Home Medications Comprehensive Discharge Medication List: Ambulatory Orders Vit/Iron Fum/Folic AC [ Tablet] 1 each PO DAILY 03/13/17
== END 2018-07-25 12:35 | disposition home or self-care (01) | DRG 560 ==
LOC: JLDR 04:05 → J3W 17:27
PROVIDERS: ADMIT Obstetrics & Gynecology; ATTEND Obstetrics & Gynecology
PROC: 10E0XZZ Delivery of Products of Conception, External Approach (ICD-10-PCS; principal; 2018-07-23)
DX: O76 Abnormality in fetal heart rate and rhythm complicating labor and delivery (principal); Z3A.37 37 weeks gestation of pregnancy; Z37.0 Single live birth
CPT/HCPCS: 36415; 59409; 80048; 80307; 81003; 85025; 85461; 85610; 85730; 86593; 86762; 86850; 86870; 86900; 86901; 86902; 86999; 87340; 87389